=== PATIENT | male | born 1990 | race African-American/Black ===

== ENCOUNTER 2016-10-06 22:35 | Emergency (ER) | payer SELFPAY ==
[~2016-10-06] VITALS: Ht 172.7 cm; Wt 80.0 kg
[2016-10-06 22:37] VITALS: BP 133/87; PULSE 68; RESP 16; TEMP 98.2; O2SAT 98
[2016-10-06] MEDS ORDERED: LIDOCAINE 1%/EPINEPHrine 1:100,000 SOLN 20 ML VIAL INFIL ONE (23:00)
[2016-10-06] MEDS ORDERED: AMOXICILLIN/CLAVULANATE K 875 MG TAB PO ONE (23:00)
[2016-10-06] MEDS ORDERED: TETANUS/DIPHTHERIA TOXOID ADULT 0.5 ML VIAL IM ONE (23:00)
[2016-10-06] MEDS ORDERED: AUGM875T PO (23:13)
--- NOTE | 2016-10-06 23:13 | PD ---
HPI Chief Complaint: Bite or Sting Time Seen by Provider: 22:58 Travel History International Travel<30 days: No Contact w/Intl Traveler<30days: No Traveled to known affect area: No History of Present Illness HPI Patient comes in for evaluation of dog bite to his left upper lip that occurred shortly prior to arrival. Patient reports his brother dog bit him. Reports all shots are up-to-date, but will clarify this with his brother. Patient is uncertain of his last tetanus shot. Patient states he applied ice prior to coming to the emergency department. Patient reports pain around slight of laceration without radiation. PFSH Past Medical History Hx Anticoagulant Therapy: No Cardiovascular Problems: No Chemotherapy: No Cerebrovascular Accident: No Diabetes: No Diminished Hearing: No Respiratory: No Past Surgical History Other Surgery: Yes (cyst removal from left hand) Social History Alcohol Use: Yes Tobacco Use: Yes Substance Use: No Allergies-Medications (Allergen,Severity, Reaction): Coded Allergies: Reglan (Verified Allergy, Severe, [facility], 10/06/16) Reported Meds & Prescriptions Reported Meds & Active Scripts Active Augmentin (Amoxicillin-Clavulanate) 875-125 mg Tab 875 Mg PO BID 10 Days not for use in CrCl <30 ml/min. Review of Systems Except as stated in HPI: all other systems reviewed are Neg Physical Exam Narrative GENERAL: Well-developed, well nourished, in no acute distress, and non-ill appearing. SKIN: Warm and dry. Laceration left upper lip through the vermilion border just left of midline that is approximately 1.5 cm in total length. Facial abrasion inferior and slightly lateral to this is approximately 1 cm in total length. Third nonrepairable laceration noted on the inner oral mucosa of the left bottom lip is approximately a half centimeter in total length.. HEAD: Atraumatic. Normocephalic. EYES: Pupils equal and round. EOMI. No scleral icterus. No injection or drainage. ENT: No nasal bleeding or discharge. Mucous membranes pink and moist. NECK: Trachea midline. Supple. No nuclear rigidity. RESPIRATORY: No accessory muscle use. No respiratory distress. MUSCULOSKELETAL: No obvious deformities. No clubbing. No cyanosis. No edema. Full range of motion. NEUROLOGICAL: Awake and alert. No obvious cranial nerve deficits. Motor grossly within normal limits. Normal speech. PSYCHIATRIC: Appropriate mood and affect; insight and judgment normal. Data Data Last Documented VS Vital Signs Date Time Temp Pulse Resp B/P Pulse Ox O2 Delivery O2 Flow Rate FiO2 10/06/16 22:37 98.2 68 16 133/87 98 Room Air Orders Tetanus/Diphtheria Tox Adult (Tetanus/Di (10/06/16 23:00) Lidocai-Epi 1%-1:100,000 Inj (Xylocaine- (10/06/16 23:00) Amoxicil-Clavulanate (Augmentin) (10/06/16 23:00) MDM Medical Decision Making Medical Screen Exam Complete: Yes Emergency Medical Condition: Yes Differential Diagnosis Laceration, abrasion, dog bite, other Narrative Course The patient suffered animal bite wound. The animal is domesticated, vaccinations are reported to be UTD and the animal can be watched. There is no evidence of deep tissue involvement and/or local tendon involvement. There was no evidence to suggest foreign bodies. Visual and tactile exams were unremarkable. There was no evidence of neurovascular injury as well. The patient s wounds were irrigated copiously, cleaned and dressed. Rabies prophylaxis was discussed with the patient and exposure appears low risk and not indicated. The patient was given signs and symptom warnings for infection, such as increasing pain, pain with movement of involved extremity,redness, swelling, associated heat, pus or fever. The patient was given antibiotics to cover mouth roxanne and instructions for timely follow up for wound recheck. The patient agreed with plan of care. Animal control was contacted per hospital protocol. Patient in no obvious distress upon re-evaluation. Patient was asked if they wanted to speak to my attending, which the patient did not wish to do at this time. Any questions/concerns in reference to patient diagnosis/condition discussed and clarified prior to patient's discharge. Reinforced sheer importance of close follow up with patient's primary physician or primary care clinic. Instructed patient to return to ED immediately, if symptoms return/ worsen. Pt showed understanding of above instructions. Further instructions and recommendations were detailed in discharge paperwork. Pt ambulated without difficulty out of ED at discharge. Procedures Procedure Narrative LACERATION REPAIR LOCATION: Left upper lip LENGTH: Approximately 1.5 cm NUMBER OF STITCHES/USMAN: 3 simple interrupted REPAIR: Verbal consent was obtained. The area of the laceration was cleaned and prepped. The laceration was infiltrated with lidocaine with epi. The wound was copiously irrigated and explored without evidence of foreign body, bony involvement, ligament injury, tendon injury, or neurovascular injury. The vermilion border was realigned and wound was closed using 5-0 Vicryl. This was a single layer repair. The patient was advised to keep the affected area as clean and dry as possible using soap and water. There were no complications. Patient tolerated the procedure well. Diagnosis Primary Impression: Dog bite Qualified Code: W54.0XXA - Dog bite, initial encounter Additional Impression: Lip laceration Qualified Code: S01.511A - Lip laceration, initial encounter Patient Instructions: Animal Bite (ED), Care For Your Absorbable Stitches (ED) , Facial Laceration (ED), General Instructions Additional Instructions: Follow-up with your primary care physician this week for evaluation. Take all medication as prescribed. Use [id number] Tylenol and/or ibuprofen for pain as needed. Follow instructions on the packaging. Return to the emergency department if symptoms get worse. Med/Other Pt SpecificInfo: Prescription(s) given Scripts Amoxicillin-Clavulanate (Augmentin)875-125 mg Khi680 Mg PO BID 10 Days Ref 0 not for use in CrCl <30 ml/min. Prov:Eladio Andrade MD 10/06/16 Disposition: 01 DISCHARGE HOME Condition: Stable Ric Chong Oct 06, 2016 23:13
== END 2016-10-06 23:37 | disposition home or self-care (01) ==
LOC: NEPB 22:35
DX: S01.511A Laceration without foreign body of lip, initial encounter (principal); W54.0XXA Bitten by dog, initial encounter; Z23 Encounter for immunization; Z72.0 Tobacco use
CPT/HCPCS: 12011; 90471; 90714